=== PATIENT | male | born 1975 | race Caucasian/White ===

== ENCOUNTER 2017-02-09 11:10 | Emergency (ER) | payer MEDICAID, OTHER ==
[2017-02-09 11:35] VITALS: RESP 18; TEMP 97.8; BMI 23.1
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
[2017-02-09 13:03] VITALS: O2SAT 96
--- NOTE | 2017-02-09 13:23 | RAD ---
PROCEDURE: Radiographs of the Lumbar Spine. HISTORY: pain COMPARISON: No prior. FINDINGS: BONES: Multilevel fish-mouth / biconcave endplate deformities are present. . Straightening of the normal lumbar lordosis however vertebral bodies otherwise exhibit normal alignment. Facets normally aligned. Note made of apparent exuberant overgrowth/ superolateral extension of the right L5 and to a lesser degree lateral extension of a right L3 and right L1 transverse processes. DISC SPACES: Disc space heights are relatively maintained not withstanding the aforementioned fish-mouth endplate deformities. . Mild multilevel degenerative spondylosis most notably affecting the lower thoracic and upper lumbar region with minor disc space narrowing endplate eburnation and small anterolateral osteophyte formation. OTHER FINDINGS: None. IMPRESSION: No acute fractures however multilevel fish-mouth/concave endplate deformities. Straightening of the normal lumbar lordosis. Mild multilevel degenerative spondylosis as above.
--- NOTE | 2017-02-09 13:27 | RAD ---
PROCEDURE: Radiographs of the pelvis. HISTORY: pain COMPARISON: None. FINDINGS: BONES: Pelvic Bones: Unremarkable. Hips: Degenerative changes of the right left hip joints right greater left JOINTS: Sacroiliac Joints: Unremarkable. Pubic Symphysis: Unremarkable. OTHER FINDINGS: Note made of apparent exuberant overgrowth/ superolateral extension of the right L5 and transverse process. IMPRESSION: No acute fractures. Degenerative changes of the right atrium for critical
[2017-02-09 14:20] VITALS: BP 132/56; PULSE 70
== END 2017-02-09 14:00 | disposition home or self-care (01) ==
LOC: ED 11:10
DX: M54.9 Dorsalgia, unspecified (principal); V18.4XXA Pedal cycle driver injured in noncollision transport accident in traffic accident, initial encounter; Y93.55 Activity, bike riding; Y92.410 Unspecified street and highway as the place of occurrence of the external cause
CPT/HCPCS: 72100; 72170; 96372; 99284; J1885

== ENCOUNTER 2017-05-15 14:05 | Emergency (ER) | payer MEDICAID ==
[2017-05-15 14:23] VITALS: BP 152/72; PULSE 98; RESP 16; TEMP 98.2; O2SAT 99; BMI 21.2
--- NOTE | 2017-05-15 14:25 | ED PDOC ---
Arrival/HPI - General Time Seen by Provider: 05/15/17 14:07 Historian: Patient - History of Present Illness Narrative History of Present Illness (Text): 05/15/17 14:22 A 41 year old male, who denies any past medical history, presents to the emergency department complaining of lesions on his tongue. Patient reports he noticed the lesions after engaging in oral sex. Patient denies any fever, chills , nausea, vomiting, abdominal pain, chest pain, shortness of breath or any other complaints. PMD: None Time/Duration: Other Context: Home Past Medical History - Provider Review Nursing Documentation Reviewed: Yes - Infectious Disease Hx of Infectious Diseases: None - Tetanus Immunization Tetanus Immunization: Unknown - Past Medical History Past Medical History: No Previous - Psychiatric Hx Substance Use: Yes - Past Surgical History Past Surgical History: No Previous - Surgical History Other/Comment: back head - Anesthesia Hx Anesthesia: No - Suicidal Assessment Feels Threatened In Home Enviroment: No Family/Social History - Physician Review Nursing Documentation Reviewed: Yes Family/Social History: No Known Family HX Smoking Status: Heavy Smoker > 10 Cigarettes Daily Hx Alcohol Use: Yes Hx Substance Use: Yes Substance used: marijuana Hx Substance Use Treatment: Yes Allergies/Home Meds Allergies/Adverse Reactions: Allergies No Known Allergies Allergy (Verified 06/25/14 23:50) Review of Systems - Physician Review All systems were reviewed & negative as marked: Yes - Review of Systems Constitutional: absent: Fevers, Night Sweats ENT: Other (Lesions on tongue) Respiratory: absent: SOB Cardiovascular: absent: Chest Pain Gastrointestinal: absent: Abdominal Pain, Nausea, Vomiting Physical Exam Vital Signs Reviewed: Yes Vital Signs Temp Pulse Resp BP Pulse Ox 05/15/17 14:17 98.2 F 98 H 16 152/72 H 99 Temperature: Afebrile Blood Pressure: Hypertensive Pulse: Tachycardic Respiratory Rate: Normal Appearance: Positive for: Well-Appearing, Non-Toxic, Comfortable Pain Distress: None Mental Status: Positive for: Alert and Oriented X 3 - Systems Exam Head: Present: Atraumatic, Normocephalic Pupils: Present: PERRL Extroacular Muscles: Present: EOMI Conjunctiva: Present: Normal Mouth: Present: Moist Mucous Membranes, Other (Bilateral vesicles on erythematous base) Neurological: Present: GCS=15, CN II-XII Intact, Speech Normal Skin: Present: Warm, Dry, Normal Color. No: Rashes Psychiatric: Present: Alert, Oriented x 3, Normal Insight, Normal Concentration Medical Decision Making ED Course and Treatment: 05/15/17 14:22 Impression: A 41 year old male with sores on tongue after oral sex. suspect hsv 1 vs 2.no penile dc or complaints. advise close outpt fu Plan: -- Zovirax -- Reassess and disposition Progress Notes: 05/15/17 17:01 - Medication Orders Current Medication Orders: Discontinued Medications Acyclovir (Zovirax) 400 mg PO STAT STA PRN Reason: Protocol Stop: 05/15/17 14:27 - Scribe Statement The provider has reviewed the documentation as recorded by the Vazquezibaaron Barid Provider Scribe Attestation: All medical record entries made by the Scribe were at my direction and personally dictated by me. I have reviewed the chart and agree that the record accurately reflects my personal performance of the history, physical exam, medical decision making, and the department course for this patient. I have also personally directed, reviewed, and agree with the discharge instructions and disposition. Disposition/Present on Arrival - Present on Arrival Any Indicators Present on Arrival: No History of DVT/PE: No History of Uncontrolled Diabetes: No Urinary Catheter: No History Surgical Site Infection Following: None - Disposition Have Diagnosis and Disposition been Completed?: Yes Diagnosis: Herpes Disposition: HOME/ ROUTINE Disposition Time: 17:02 Condition: STABLE Discharge Instructions (ExitCare): Oral Herpes Simplex Virus Infections (ED), Gingivostomatitis (ED) Additional Instructions: please follow up with specialist and clinic return to er with worsening symptoms or concerns. Prescriptions: Acyclovir 400 mg PO 5XD #35 tablet Referrals: [facility] [Outside] - Follow up with primary [facility] [place]] - Follow up with primary Judson Fallon DO [Staff Provider] - Follow up with primary Forms: [employer] (Telugu)
== END 2017-05-15 14:30 | disposition home or self-care (01) ==
LOC: ED 14:05
DX: B00.9 Herpesviral infection, unspecified (principal)

== ENCOUNTER 2017-05-30 14:45 | Emergency (ER) | payer MEDICAID ==
[2017-05-30 14:45] VITALS: BMI 21.2
[2017-05-30 14:54] VITALS: TEMP 98.6
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
[2017-05-30 16:08] VITALS: BP 130/73; PULSE 16; RESP 18; O2SAT 98
== END 2017-05-30 16:13 | disposition home or self-care (01) ==
LOC: ED 14:45
DX: K13.70 Unspecified lesions of oral mucosa (principal); F17.210 Nicotine dependence, cigarettes, uncomplicated

== ENCOUNTER 2017-09-30 22:04 | Emergency (ER) | payer MEDICAID, OTHER ==
[2017-09-30 22:05] VITALS: BMI 21.2
--- NOTE | 2017-09-30 22:38 | ED PDOC ---
Arrival/HPI - General Time Seen by Provider: 09/30/17 22:27 Historian: Patient - History of Present Illness Narrative History of Present Illness (Text): 09/30/17 22:38 Luis Del Angel is a 42 year old male, with no significant past medical history, who presents to the Emergency department brought in by EMS for public intoxication. Patient was found outside inebriated and admits to drinking alcohol tonight. Patient states he feels fine and denies any fever, chills, chest pain, shortness of breath, nausea, vomiting, diarrhea, urinary symptoms, back pain, neck pain, headache, dizziness, or any other complaints. Time/Duration: Other (tonight) Symptom Onset: Gradual Symptom Course: Unchanged Activities at Onset: Light Context: Street Past Medical History - Provider Review Nursing Documentation Reviewed: Yes - Infectious Disease Hx of Infectious Diseases: None - Tetanus Immunization Tetanus Immunization: Unknown - Past Medical History Past Medical History: No Previous - Psychiatric Hx Substance Use: Yes - Past Surgical History Past Surgical History: No Previous - Surgical History Other/Comment: hand sx in past - Anesthesia Hx Anesthesia: Yes Hx Anesthesia Reactions: No - Suicidal Assessment Feels Threatened In Home Enviroment: No Family/Social History - Physician Review Nursing Documentation Reviewed: Yes Family/Social History: Unknown Family HX Smoking Status: Heavy Smoker > 10 Cigarettes Daily Hx Alcohol Use: Yes Hx Substance Use: Yes Substance used: marijuana Hx Substance Use Treatment: Yes Allergies/Home Meds Allergies/Adverse Reactions: Allergies No Known Allergies Allergy (Verified 05/30/17 14:51) Home Medications: Home Meds Medication Instructions Recorded Confirmed No Known Home Med 05/30/17 09/30/17 Review of Systems - Physician Review All systems were reviewed & negative as marked: Yes - Review of Systems Constitutional: Normal. absent: Fevers Eyes: Normal ENT: Normal Respiratory: Normal. absent: SOB, Cough Cardiovascular: Normal. absent: Chest Pain Gastrointestinal: Normal. absent: Abdominal Pain, Diarrhea, Nausea, Vomiting Genitourinary Male: Normal. absent: Dysuria, Frequency, Hematuria, Urinary Output Changes Musculoskeletal: Normal. absent: Back Pain, Neck Pain Skin: Normal. absent: Rash Neurological: Normal. absent: Headache, Dizziness Endocrine: Normal Hemo/Lymphatic: Normal Psychiatric: Normal Physical Exam Vital Signs Reviewed: Yes Vital Signs Temp Pulse Resp BP Pulse Ox 10/01/17 03:10 89 16 147/92 H 100 09/30/17 22:46 97.6 F 94 H 20 140/109 H 98 Temperature: Afebrile Blood Pressure: Normal Pulse: Regular Respiratory Rate: Normal Appearance: Positive for: Well-Appearing, Non-Toxic, Comfortable Pain Distress: None Mental Status: Positive for: Alert and Oriented X 3 - Systems Exam Head: Present: Atraumatic, Normocephalic Pupils: Present: PERRL Extroacular Muscles: Present: EOMI Conjunctiva: Present: Normal Mouth: Present: Moist Mucous Membranes Neck: Present: Normal Range of Motion Respiratory/Chest: Present: Clear to Auscultation, Good Air Exchange. No: Respiratory Distress, Accessory Muscle Use Cardiovascular: Present: Regular Rate and Rhythm, Normal S1, S2. No: Murmurs Abdomen: Present: Normal Bowel Sounds. No: Tenderness, Distention, Peritoneal Signs Back: Present: Normal Inspection Upper Extremity: Present: Normal Inspection. No: Cyanosis, Edema Lower Extremity: Present: Normal Inspection. No: Edema Neurological: Present: GCS=15, CN II-XII Intact, Speech Normal Skin: Present: Warm, Dry, Normal Color. No: Rashes Psychiatric: Present: Alert, Oriented x 3, Normal Insight, Normal Concentration Medical Decision Making ED Course and Treatment: 09/30/17 22:38 Impression: 42 year old male brought in for alcohol intoxication tonight. Differential Diagnosis included but are not limited to: alcohol intoxication Plan: -- Reassess and disposition Progress Notes: 10/01/17 04:25 Pt awake, alert, ambulatory with steady. In no acute distress, clinically sober. Pt stable for d/c. - Scribe Statement The provider has reviewed the documentation as recorded by the Husam Ocasio Provider Scribe Attestation: All medical record entries made by the Scribaaron were at my direction and personally dictated by me. I have reviewed the chart and agree that the record accurately reflects my personal performance of the history, physical exam, medical decision making, and the department course for this patient. I have also personally directed, reviewed, and agree with the discharge instructions and disposition. Disposition/Present on Arrival - Present on Arrival Any Indicators Present on Arrival: No History of DVT/PE: No History of Uncontrolled Diabetes: No Urinary Catheter: No History Surgical Site Infection Following: None - Disposition Have Diagnosis and Disposition been Completed?: Yes Diagnosis: Alcohol intoxication Disposition: HOME/ ROUTINE Disposition Time: 04:31 Patient Plan: Discharge Patient Problems: Current Active Problems Problem Status Onset Alcohol intoxication Acute Condition: STABLE Discharge Instructions (ExitCare): Alcohol Abuse and Alcoholism (DC) Referrals: Laina Bullard MD [Primary Care Provider] - Follow up with primary [facility] [Outside] - Follow up with primary
[2017-09-30 22:49] VITALS: TEMP 97.6
[2017-10-01 03:10] VITALS: RESP 16
[2017-10-01 04:51] VITALS: BP 142/86; PULSE 86; O2SAT 99
== END 2017-10-01 04:30 | disposition home or self-care (01) ==
LOC: ED 22:04
DX: F10.129 Alcohol abuse with intoxication, unspecified (principal); F17.210 Nicotine dependence, cigarettes, uncomplicated

== ENCOUNTER 2018-04-20 19:12 | Emergency (ER) | payer SELFPAY ==
[2018-04-20 19:12] VITALS: BMI 21.2
== END 2018-04-21 04:51 | disposition left against medical advice (07) ==
LOC: ED 19:12
DX: Z02.89 Encounter for other administrative examinations (principal); T50.991A Poisoning by other drugs, medicaments and biological substances, accidental (unintentional), initial encounter

== ENCOUNTER 2018-07-31 17:55 | Emergency (ER) | payer SELFPAY ==
[2018-07-31 17:56] VITALS: BMI 21.2
[2018-07-31 17:59] VITALS: RESP 18; TEMP 97.3
--- NOTE | 2018-07-31 18:32 | ED PDOC ---
Arrival/HPI - General Chief Complaint: Alcohol Ingestion Time Seen by Provider: 07/31/18 18:11 Historian: Patient - History of Present Illness Narrative History of Present Illness (Text): 07/31/18 18:29 43 year old male with no significant Past medical history presents to the Emergency department brought in by EMS for public intoxication. Patient was found outside inebriated and admits to drinking alcohol. Patient denies any c hest pain, abdominal pain, vomiting, nausea, trauma, injury, suicidal ideation, homicidal ideation, or any other complaints. Time/Duration: 24 hours Symptom Onset: Gradual Symptom Course: Unchanged Activities at Onset: Light Context: Street Past Medical History - Provider Review Nursing Documentation Reviewed: Yes - Infectious Disease Hx of Infectious Diseases: None - Tetanus Immunization Tetanus Immunization: Unknown - Past Medical History Past Medical History: No Previous - Cardiac Hx Cardiac Disorders: No - Psychiatric Hx Substance Use: Yes - Past Surgical History Past Surgical History: No Previous - Surgical History Other/Comment: hand sx in past - Anesthesia Hx Anesthesia: Yes Hx Anesthesia Reactions: No - Suicidal Assessment Feels Threatened In Home Enviroment: No Family/Social History - Physician Review Nursing Documentation Reviewed: Yes Family/Social History: Unknown Family HX Smoking Status: Heavy Smoker > 10 Cigarettes Daily Hx Alcohol Use: Yes Hx Substance Use: Yes Substance used: marijuana Hx Substance Use Treatment: Yes Allergies/Home Meds Allergies/Adverse Reactions: Allergies No Known Allergies Allergy (Verified 05/30/17 14:51) Home Medications: Home Meds Medication Instructions Recorded Confirmed No Known Home Med 05/30/17 09/30/17 Review of Systems - Physician Review All systems were reviewed & negative as marked: Yes - Review of Systems Constitutional: absent: Fevers Respiratory: absent: SOB, Cough Cardiovascular: absent: Chest Pain, Syncope Gastrointestinal: absent: Nausea, Vomiting Musculoskeletal: absent: Back Pain, Neck Pain Skin: absent: Rash Neurological: absent: Headache Psychiatric: absent: Suicidal Ideation Physical Exam Vital Signs Reviewed: Yes Vital Signs Temp Pulse Resp BP Pulse Ox 07/31/18 17:58 97.3 F L 88 18 131/88 99 Temperature: Afebrile Blood Pressure: Normal Pulse: Regular Respiratory Rate: Normal Appearance: Positive for: Well-Appearing, Non-Toxic, Comfortable Pain Distress: None Mental Status: Positive for: Alert and Oriented X 3 - Systems Exam Head: Present: Atraumatic, Normocephalic Pupils: Present: PERRL Extroacular Muscles: Present: EOMI Conjunctiva: Present: Normal Mouth: Present: Moist Mucous Membranes Neck: Present: Normal Range of Motion Respiratory/Chest: Present: Clear to Auscultation, Good Air Exchange. No: Respiratory Distress, Accessory Muscle Use Cardiovascular: Present: Regular Rate and Rhythm, Normal S1, S2. No: Murmurs Abdomen: No: Tenderness, Distention, Peritoneal Signs Back: Present: Normal Inspection Upper Extremity: Present: Normal Inspection. No: Cyanosis, Edema Lower Extremity: Present: Normal Inspection. No: Edema Neurological: Present: GCS=15, Speech Normal Skin: Present: Warm, Dry, Normal Color. No: Rashes Psychiatric: Present: Alert, Oriented x 3, Normal Insight, Normal Concentration Medical Decision Making ED Course and Treatment: 07/31/18 18:36 Impression: 43 year old male presents to the Emergency department brought in by EMS for public intoxication. Differential Diagnosis included but are not limited to: Plan: -- Reassess and disposition Prior Visits: Notes and results from previous visits were reviewed. Progress Notes: - PA / MARKETING DATABASE COORDINATOR / Resident Statement / has reviewed & agrees with the documentation as recorded. MD/ has examined the patient and agrees with the treatment plan. - Scribe Statement The provider has reviewed the documentation as recorded by the Husam Mac All medical record entries made by the Vazquezibaaron were at my direction and pers onally dictated by me. I have reviewed the chart and agree that the record accurately reflects my personal performance of the history, physical exam, medical decision making, and the department course for this patient. I have also personally directed, reviewed, and agree with the discharge instructions and disposition. Disposition/Present on Arrival - Present on Arrival History of DVT/PE: No History of Uncontrolled Diabetes: No Urinary Catheter: No History of Decub. Ulcer: No History Surgical Site Infection Following: None - Disposition Referrals: FAMILY PROVIDER,NO [Primary Care Provider] - Follow up with primary Forms: [employer] (Frisian)
--- NOTE | 2018-07-31 19:02 | ED PDOC ---
Arrival/HPI - General Chief Complaint: Alcohol Ingestion Time Seen by Provider: 07/31/18 18:11 Historian: Patient - History of Present Illness Narrative History of Present Illness (Text): 07/31/18 19:02 43 year old male, with no significant Past medical history, who presents to the Emergency department brought in by EMS for public intoxication. Patient was found outside inebriated and admits to drinking alcohol. Patient states he feels fine and denies any chest pain, nausea, vomiting, trauma, injury, suicidal ideation, homicidal ideation or any other complaints. Symptom Onset: Gradual Symptom Course: Unchanged Activities at Onset: Light Context: Street Past Medical History - Provider Review Nursing Documentation Reviewed: Yes - Infectious Disease Hx of Infectious Diseases: None - Tetanus Immunization Tetanus Immunization: Unknown - Past Medical History Past Medical History: No Previous - Cardiac Hx Cardiac Disorders: No - Psychiatric Hx Substance Use: Yes - Past Surgical History Past Surgical History: No Previous - Surgical History Other/Comment: hand sx in past - Anesthesia Hx Anesthesia: Yes Hx Anesthesia Reactions: No - Suicidal Assessment Feels Threatened In Home Enviroment: No Family/Social History - Physician Review Nursing Documentation Reviewed: Yes Family/Social History: Unknown Family HX Smoking Status: Heavy Smoker > 10 Cigarettes Daily Hx Alcohol Use: Yes Hx Substance Use: Yes Substance used: marijuana Hx Substance Use Treatment: Yes Allergies/Home Meds Allergies/Adverse Reactions: Allergies No Known Allergies Allergy (Verified 05/30/17 14:51) Home Medications: Home Meds Medication Instructions Recorded Confirmed No Known Home Med 05/30/17 09/30/17 Review of Systems - Physician Review All systems were reviewed & negative as marked: Yes - Review of Systems Constitutional: absent: Fevers Respiratory: absent: SOB, Cough Cardiovascular: absent: Chest Pain Gastrointestinal: absent: Abdominal Pain, Nausea, Vomiting Musculoskeletal: absent: Back Pain, Neck Pain Skin: absent: Rash Neurological: absent: Headache, Dizziness Psychiatric: absent: Suicidal Ideation Physical Exam Vital Signs Reviewed: Yes Vital Signs Temp Pulse Resp BP Pulse Ox 07/31/18 17:58 97.3 F L 88 18 131/88 99 Temperature: Afebrile Blood Pressure: Normal Pulse: Regular Respiratory Rate: Normal Appearance: Positive for: Well-Appearing, Non-Toxic, Comfortable Pain Distress: None Mental Status: Positive for: Alert and Oriented X 3 - Systems Exam Head: Present: Atraumatic, Normocephalic Pupils: Present: PERRL Extroacular Muscles: Present: EOMI Conjunctiva: Present: Normal Mouth: Present: Moist Mucous Membranes Neck: Present: Normal Range of Motion Respiratory/Chest: Present: Clear to Auscultation, Good Air Exchange. No: Respiratory Distress, Accessory Muscle Use Cardiovascular: Present: Regular Rate and Rhythm, Normal S1, S2. No: Murmurs Abdomen: No: Tenderness, Distention, Peritoneal Signs Back: Present: Normal Inspection Upper Extremity: Present: Normal Inspection. No: Cyanosis, Edema Lower Extremity: Present: Normal Inspection. No: Edema Neurological: Present: GCS=15, Speech Normal Skin: Present: Warm, Dry, Normal Color. No: Rashes Psychiatric: Present: Alert, Oriented x 3, Normal Insight, Normal Concentration Medical Decision Making ED Course and Treatment: 07/31/18 19:00 Impression: 43 year old male presents to the Emergency department brought in by EMS for public intoxication. Differential Diagnosis included but are not limited to: Plan: -- Reassess and disposition Prior Visits: Notes and results from previous visits were reviewed. Progress Notes: 07/31/18 21:45 Patient is sleeping comfortably, breathing easy and unlabored, will continue to observe in the ER until clinically sober and ready for d/c. 08/01/18 00:27 On re-evaluation, patient is AAOx3 in no acute distress. Speaking in full sentences, no tremors, ambulating with a steady gait. Patient with no complaints. Patient cleared for discharge. - PA / SIGN POSTER / Resident Statement / has reviewed & agrees with the documentation as recorded. MD/ has examined the patient and agrees with the treatment plan. - Scribe Statement The provider has reviewed the documentation as recorded by the Husam Mac All medical record entries made by the Husam were at my direction and personally dictated by me. I have reviewed the chart and agree that the record accurately reflects my personal performance of the history, physical exam, medical decision making, and the department course for this patient. I have also personally directed, reviewed, and agree with the discharge instructions and disposition. Disposition/Present on Arrival - Present on Arrival Any Indicators Present on Arrival: No History of DVT/PE: No History of Uncontrolled Diabetes: No Urinary Catheter: No History of Decub. Ulcer: No History Surgical Site Infection Following: None - Disposition Have Diagnosis and Disposition been Completed?: Yes Diagnosis: Alcohol intoxication Disposition: HOME/ ROUTINE Disposition Time: 00:20 Patient Plan: Discharge Condition: STABLE Discharge Instructions (ExitCare): Alcohol Use - When Is Drinking a Problem? Referrals: FAMILY PROVIDER,NO [Primary Care Provider] - Follow up with primary [facility] at [facility] [place] [Outside] - Follow up with primary Forms: [employer] (Lithuanian)
[2018-07-31 21:41] VITALS: PULSE 83
[2018-07-31 23:26] VITALS: BP 125/87; O2SAT 98
== END 2018-08-01 00:47 | disposition home or self-care (01) ==
LOC: ED 17:55
DX: F10.129 Alcohol abuse with intoxication, unspecified (principal)

== ENCOUNTER 2018-09-17 17:50 | Emergency (ER) | payer SELFPAY ==
[2018-09-17 18:08] VITALS: BMI 24.3
--- NOTE | 2018-09-17 18:40 | ED PDOC ---
Arrival/HPI - General Time Seen by Provider: 09/17/18 18:10 Historian: Patient - History of Present Illness Narrative History of Present Illness (Text): 09/17/18 18:37 43 year old male, with no significant Past medical history, who presents to the Emergency department brought in by EMS for intoxication. Patient admits to drinking alcohol and smoking "weed." Patient states he feels well, has no complaints, and denies any headache, dizziness, chest pain, nausea, vomiting, trauma, injury, suicidal ideation, homicidal ideation or any other complaints. Past Medical History - Provider Review Primary Care Provider: Non [facility] Provider, - Infectious Disease Hx of Infectious Diseases: None - Tetanus Immunization Tetanus Immunization: Unknown - Past Medical History Past Medical History: No Previous - Cardiac Hx Cardiac Disorders: No - Psychiatric Hx Substance Use: Yes - Past Surgical History Past Surgical History: No Previous - Surgical History Other/Comment: hand sx in past - Anesthesia Hx Anesthesia: Yes Hx Anesthesia Reactions: No Hx Malignant Hyperthermia: No - Suicidal Assessment Feels Threatened In Home Enviroment: No Family/Social History Family/Social History: Unknown Family HX Smoking Status: Heavy Smoker > 10 Cigarettes Daily Hx Alcohol Use: Yes Frequency of alcohol use: Daily Hx Substance Use: Yes Substance used: marijuana Hx Substance Use Treatment: Yes Allergies/Home Meds Allergies/Adverse Reactions: Allergies No Known Allergies Allergy (Verified 09/17/18 18:17) Home Medications: Home Meds Medication Instructions Recorded Confirmed No Known Home Med 05/30/17 09/17/18 Review of Systems - Review of Systems Constitutional: absent: Fatigue, Fevers Respiratory: absent: SOB, Cough Cardiovascular: absent: Chest Pain, Palpitations Gastrointestinal: absent: Abdominal Pain, Diarrhea, Vomiting Musculoskeletal: absent: Arthralgias, Back Pain, Neck Pain Neurological: absent: Headache, Dizziness Physical Exam Appearance: Positive for: Well-Appearing, Non-Toxic, Comfortable, Other (+odor of alcohol on his breath) Pain Distress: None Mental Status: Positive for: Alert and Oriented X 3 - Systems Exam Head: Present: Atraumatic, Normocephalic Pupils: Present: PERRL Extroacular Muscles: Present: EOMI Conjunctiva: Present: Normal Mouth: Present: Moist Mucous Membranes Neck: Present: Normal Range of Motion Respiratory/Chest: Present: Clear to Auscultation, Good Air Exchange. No: Respiratory Distress, Accessory Muscle Use Cardiovascular: Present: Regular Rate and Rhythm, Normal S1, S2. No: Murmurs Abdomen: No: Tenderness, Distention, Peritoneal Signs Back: Present: Normal Inspection Upper Extremity: Present: Normal Inspection. No: Cyanosis, Edema Lower Extremity: Present: Normal Inspection. No: Edema Neurological: Present: GCS=15, CN II-XII Intact, Speech Normal, Motor Func Grossly Intact, Normal Sensory Function Skin: Present: Warm, Dry, Normal Color. No: Rashes Psychiatric: Present: Alert, Oriented x 3, Normal Insight, Normal Concentration Medical Decision Making ED Course and Treatment: 09/17/18 18:38 Impression: 43 year old male presents to the Emergency department for intoxication. Plan: -- Observation until clinically sober -- Reassess and disposition Prior Visits: Notes and results from previous visits were reviewed. Progress Notes: Patient is AAOx3, in no acute distress, resting comfortably, breathing easy and unlabored, will observe in the ER until clinically sober and ready for d/c. 09/17/18 19:20 On re-evaluation, patient is AAOx3 in no acute distress. Speaking in full sentences to the staff, no tremors, ambulating with a steady gait all over the ER. Patient with no complaints, states that he is hungry and wants to eat. Patient cleared for discharge. - PA / PLUSH DRESSER / Resident Statement MD/DO has reviewed & agrees with the documentation as recorded. Disposition/Present on Arrival - Present on Arrival Any Indicators Present on Arrival: No History of DVT/PE: No History of Uncontrolled Diabetes: No Urinary Catheter: No History of Decub. Ulcer: No History Surgical Site Infection Following: None - Disposition Have Diagnosis and Disposition been Completed?: Yes Diagnosis: Alcohol intoxication Disposition: HOME/ ROUTINE Disposition Time: 19:20 Patient Plan: Discharge Condition: STABLE Discharge Instructions (ExitCare): Alcohol Use - When Is Drinking a Problem? Referrals: PCP,NO [Primary Care Provider] - Follow up with primary Forms: [employer] (Vietnamese)
[2018-09-17 18:48] VITALS: BP 164/89; PULSE 98; RESP 18; TEMP 98.2; O2SAT 99
== END 2018-09-17 19:20 | disposition home or self-care (01) ==
LOC: ED 17:50
DX: F10.129 Alcohol abuse with intoxication, unspecified (principal); F17.210 Nicotine dependence, cigarettes, uncomplicated

== ENCOUNTER 2018-09-30 16:23 | Emergency (ER) | payer SELFPAY ==
[2018-09-30 16:23] VITALS: BMI 24.3
[2018-09-30 16:50] VITALS: RESP 18
[2018-09-30] MEDS ORDERED: DiphenhydrAMINE 50 mg/ml Inj IM STA (19:02)
[2018-09-30] MEDS ORDERED: DiphenhydrAMINE 50 mg/ml Inj ONE (19:09)
--- NOTE | 2018-09-30 19:10 | ED PDOC ---
Arrival/HPI - General Chief Complaint: Alcohol Ingestion Historian: EMS, Police - History of Present Illness Narrative History of Present Illness (Text): 09/30/18 17:09 A 43 year old male presents to the emergency room by De for ETOH intoxication. Patient is uncooperative and has poor hygiene. ROS and HPI limited to due patient being uncooperative. Time/Duration: Other (earlier today) Symptom Onset: Gradual Symptom Course: Unchanged Context: Street Past Medical History - Provider Review Nursing Documentation Reviewed: Yes - Infectious Disease Hx of Infectious Diseases: None - Tetanus Immunization Tetanus Immunization: Unknown - Past Medical History Past Medical History: No Previous - Cardiac Hx Cardiac Disorders: No - Psychiatric Hx Substance Use: Yes - Past Surgical History Past Surgical History: No Previous - Surgical History Other/Comment: hand sx in past - Anesthesia Hx Anesthesia: Yes Hx Anesthesia Reactions: No Hx Malignant Hyperthermia: No - Suicidal Assessment Feels Threatened In Home Enviroment: No Family/Social History - Physician Review Nursing Documentation Reviewed: Yes Family/Social History: No Known Family HX Smoking Status: Heavy Smoker > 10 Cigarettes Daily Hx Alcohol Use: Yes Hx Substance Use: Yes Substance used: marijuana Hx Substance Use Treatment: Yes Allergies/Home Meds Allergies/Adverse Reactions: Allergies No Known Allergies Allergy (Verified 09/17/18 18:17) Home Medications: Home Meds Medication Instructions Recorded Confirmed No Known Home Med 05/30/17 09/17/18 Review of Systems - Review of Systems Systems not reviewed;Unavailable: Uncooperative Physical Exam Vital Signs Reviewed: Yes Vital Signs Temp Pulse Resp BP Pulse Ox 09/30/18 16:35 98 F 85 18 125/75 97 Temperature: Afebrile Blood Pressure: Normal Pulse: Regular Respiratory Rate: Normal Appearance: Positive for: Unkept Mental Status: Positive for: Alert and Oriented X 3 Finger Stick Blood Glucose: 83 - Systems Exam Head: Present: Atraumatic, Normocephalic Pupils: Present: PERRL Extroacular Muscles: Present: EOMI Conjunctiva: Present: Normal Respiratory/Chest: Present: Clear to Auscultation, Good Air Exchange. No: Respiratory Distress, Accessory Muscle Use Cardiovascular: Present: Regular Rate and Rhythm, Normal S1, S2. No: Murmurs Abdomen: No: Tenderness, Distention, Peritoneal Signs Upper Extremity: Present: Normal Inspection. No: Cyanosis, Edema Lower Extremity: Present: Normal Inspection. No: Edema Neurological: Present: GCS=15, CN II-XII Intact, Speech Normal Skin: Present: Warm, Dry, Normal Color. No: Rashes Psychiatric: Present: Alert, Oriented x 3, Normal Insight, Normal Concentration Medical Decision Making ED Course and Treatment: 09/30/18 17:11 Impression: 43 year old male presenting to the emergency room for ETOH intoxication. Plan: -- Labs -- Benadryl -- Haldol -- Ativan -- Reassess and disposition Prior Visits: Notes and results from previous visits were reviewed. Progress Notes: - Medication Orders Current Medication Orders: Discontinued Medications Diphenhydramine HCl (Benadryl) 25 mg IM STAT STA Stop: 09/30/18 19:03 Haloperidol Lactate (Haldol) 5 mg IM STAT STA; Protocol Stop: 09/30/18 19:03 Lorazepam (Ativan) 1 mg IM ONCE ONE; Protocol Stop: 09/30/18 17:13 Last Admin: 09/30/18 18:30 Dose: 1 mg IM Administration Charges Document 09/30/18 18:30 MR (Rec: 09/30/18 18:46 MR [id number]) Injection Site MAR Injection Site Left Deltoid Charges for Administration # of IM Administrations 1 - Scribe Statement The provider has reviewed the documentation as recorded by the Scribaaron Alvarez All medical record entries made by the Scribe were at my direction and personally dictated by me. I have reviewed the chart and agree that the record accurately reflects my personal performance of the history, physical exam, medical decision making, and the department course for this patient. I have also personally directed, reviewed, and agree with the discharge instructions and disposition. Disposition/Present on Arrival - Present on Arrival History of DVT/PE: No History of Uncontrolled Diabetes: No Urinary Catheter: No History of Decub. Ulcer: No History Surgical Site Infection Following: None - Disposition Forms: [employer] (Thai)
--- NOTE | 2018-09-30 20:22 | ED PDOC ---
Physical Exam Vital Signs Reviewed: Yes Vital Signs Temp Pulse Resp BP Pulse Ox 09/30/18 16:35 98 F 85 18 125/75 97 Temperature: Afebrile Blood Pressure: Normal Pulse: Regular Respiratory Rate: Normal Appearance: Positive for: Well-Appearing, Non-Toxic, Comfortable Pain Distress: None Mental Status: Positive for: Alert and Oriented X 3 Finger Stick Blood Glucose: 83 Medical Decision Making ED Course and Treatment: 09/30/18 20:21 Patient endorsed to me by Dr Barry. Patient pending sobriety. Brought in by EMS for public intoxication, possible drug use. 10/01/18 04:16 patient is awake and alert, clear speech, no s/s of alcohol withdrawal, stable for dc - Medication Orders Current Medication Orders: Discontinued Medications Diphenhydramine HCl (Benadryl) 25 mg IM STAT STA Stop: 09/30/18 19:03 Last Admin: 09/30/18 19:13 Dose: 25 mg IM Administration Charges Document 09/30/18 19:13 MR (Rec: 09/30/18 19:14 MR [id number]) Injection Site MAR Injection Site Left Vastus Lateralis Charges for Administration # of IM Administrations 1 Haloperidol Lactate (Haldol) 5 mg IM STAT STA; Protocol Stop: 09/30/18 19:03 Last Admin: 09/30/18 19:13 Dose: 5 mg IM Administration Charges Document 09/30/18 19:13 MR (Rec: 09/30/18 19:13 MR [id number]) Injection Site MAR Injection Site Right Deltoid Charges for Administration # of IM Administrations 1 Lorazepam (Ativan) 1 mg IM ONCE ONE; Protocol Stop: 09/30/18 17:13 Last Admin: 09/30/18 18:30 Dose: 1 mg IM Administration Charges Document 09/30/18 18:30 MR (Rec: 09/30/18 18:46 MR [id number]) Injection Site MAR Injection Site Left Deltoid Charges for Administration # of IM Administrations 1 Lorazepam (Ativan) 2 mg IM ONCE ONE; Protocol Stop: 09/30/18 19:08 Last Admin: 09/30/18 19:14 Dose: 2 mg IM Administration Charges Document 09/30/18 19:14 MR (Rec: 09/30/18 19:14 MR [id number]) Injection Site MAR Injection Site Left Deltoid Charges for Administration # of IM Administrations 1 Disposition/Present on Arrival - Present on Arrival Any Indicators Present on Arrival: No History of DVT/PE: No History of Uncontrolled Diabetes: No Urinary Catheter: No History of Decub. Ulcer: No History Surgical Site Infection Following: None - Disposition Have Diagnosis and Disposition been Completed?: Yes Diagnosis: Alcohol intoxication Disposition: HOME/ ROUTINE Disposition Time: 04:17 Patient Plan: Discharge Condition: STABLE Forms: [employer] Document Management software ([place]izen [place])
[2018-10-01 05:51] VITALS: BP 110/68; PULSE 88; TEMP 98.2; O2SAT 98
== END 2018-10-01 04:35 | disposition home or self-care (01) ==
LOC: ED 16:23
DX: F10.129 Alcohol abuse with intoxication, unspecified (principal); F17.210 Nicotine dependence, cigarettes, uncomplicated
CPT/HCPCS: 96372; 99285; G0480; J1200; J1630; J2060